=== PATIENT | male | born 1990 | race Caucasian/White ===

== ENCOUNTER → 2024-02-12 13:36 | Outpatient (REF) | payer OTHER, SELFPAY | LOC: RAD 13:36 | PROVIDERS: ATTENDING PHYSICIAN Physician Assistant | DX: C67.2 Malignant neoplasm of lateral wall of bladder (principal); R07.89 Other chest pain; R06.02 Shortness of breath; R89.8 Other abnormal findings in specimens from other organs, systems and tissues; Z13.220 Encounter for screening for lipoid disorders | CPT/HCPCS: 71046 ==

== ENCOUNTER → 2024-11-18 17:34 | Outpatient (REF) | payer OTHER, SELFPAY | LOC: RAD 17:34 | PROVIDERS: ATTENDING PHYSICIAN Internal Medicine | DX: R07.89 Other chest pain (principal) | CPT/HCPCS: 71046 ==

== ENCOUNTER 2025-08-21 06:26 | Day surgery (SDC) | payer OTHER, SELFPAY ==
[2025-08-21] VITALS (8 sets, daily range): BP systolic 128–151; BP diastolic 78–98; BMI 26.4
[2025-08-21] MEDS: NORMOSOL-R/PLASMALYTE-A 1000 IV (12:16)
[2025-08-21] MEDS: SYRINGE NON-PUMP 50 MG IRRIG ×2 (14:26→14:27)
[2025-08-21] MEDS: SYRINGE NON-PUMP 50 ML IRRIG ×2 (14:26→14:27)
[2025-08-21] MEDS: DETROL LA 4 MG PO (14:50)
== END 2025-08-21 15:48 | disposition home or self-care (01) ==
LOC: SDS 06:26
PROVIDERS: ATTENDING PHYSICIAN Surgery
DX: C67.9 Malignant neoplasm of bladder, unspecified (principal)
CPT/HCPCS: 52234; C9738; 88307; A9589; J9201